=== PATIENT | male | born 1960 | race Caucasian/White ===

== ENCOUNTER 2021-12-31 08:17 | Emergency (ER) | payer BC ==
[2021-12-31] MEDS ORDERED: KETOROLAC 30 MG/ML INJ ONE (09:53)
--- NOTE | 2021-12-31 10:24 | EDPHYS ---
Physician Documentation [facility] Name: Alexys Hull Age: 61 yrs Sex: Male : 1960 Arrival Date: 12/31/2021 Time: 08:20 Bed 10 Private MD: Rizwana Santacruz ED Physician Tabatha West HPI: 12/31 08:51 This 61 yrs old Male presents to ER via Ambulatory with complaints of Hip Pain. jh7 08:51 The patient or guardian reports pain. Onset: The symptoms/episode began/occurred jh7 gradually, 1 month(s) ago. Associated signs and symptoms: Pertinent negatives:. Patient presents for intermittent left hip pain starting 1 month ago. He said that 1 morning he was laying on his left hip and started to feel pain. States that no set movement causes the pain and describes it as intermittent. Reports that he can be sitting on the couch and suddenly feel it or feel it while he is walking. Denies any injury/trauma. History of hypertension and diabetes.. Historical: - Allergies: 08:37 No Known Allergies; ss - PMHx: 08:37 Diabetes mellitus; Hypertensive disorder; ss - PSHx: 08:37 None; ss - Immunization history:: Client reports receiving the 2nd dose of the Covid vaccine. - Social history:: Smoking status: Patient denies any tobacco usage or history of. ROS: 08:51 Constitutional: Negative for fever, chills, and weight loss, ENT: Negative for injury, jh7 pain, and discharge, Neck: Negative for injury, pain, and swelling, Cardiovascular: Negative for chest pain, palpitations, and edema, Respiratory: Negative for shortness of breath, cough, wheezing, and pleuritic chest pain, Abdomen/GI: Negative for abdominal pain, nausea, vomiting, diarrhea, and constipation, Back: Negative for injury and pain, MS/Extremity: Negative for injury and deformity, Skin: Negative for injury, rash, and discoloration, Neuro: Negative for headache, weakness, numbness, tingling, and seizure. 08:51 MS/extremity: Positive for pain, Negative for injury or acute deformity, decreased range of motion, swelling, tenderness. 08:51 All other systems are negative. Exam: 08:51 Constitutional: This is a well developed, well nourished patient who is awake, alert, 7 and in no acute distress. Head/Face: Normocephalic, atraumatic. Cardiovascular: Regular rate and rhythm with a normal S1 and S2. No gallops, murmurs, or rubs. Normal PMI, no JVD. No pulse deficits. Respiratory: Lungs have equal breath sounds bilaterally, clear to auscultation and percussion. No rales, rhonchi or wheezes noted. No increased work of breathing, no retractions or nasal flaring. Abdomen/GI: Soft, non-tender, with normal bowel sounds. No distension or tympany. No guarding or rebound. No evidence of tenderness throughout. Back: No spinal tenderness. No costovertebral tenderness. Full range of motion. Skin: Warm, dry with normal turgor. Normal color with no rashes, no lesions, and no evidence of cellulitis. Neuro: Awake and alert, GCS 15, oriented to person, place, time, and situation. Motor strength 5/5 in all extremities. Sensory grossly intact. Normal gait. 08:51 Musculoskeletal/extremity: ROM: intact in all extremities, Circulation is intact in all extremities. Sensation intact. Left hip: Neurovascularly intact, reports some stiffness when moving from sitting to standing over the iliac crest. No deformity, erythema, or tenderness to palpation.. Vital Signs: 08:36 BP 142 / 88; Pulse 93; Resp 16; Temp 97.4(TE); Pulse Ox 99% on R/A; Weight 99.79 kg; ss Height 5 ft. 10 in. (177.80 cm); Pain 2/10; 08:36 Body Mass Index 31.57 (99.79 kg, 177.80 cm) MDM: 08:40 Patient medically screened. [facility] 10:20 Differential diagnosis: bursitis, arthritis, strain. Data reviewed: vital signs, nurses [facility] notes, radiologic studies, plain films. Data interpreted: Pulse oximetry: is 99 %. Interpretation: normal. Counseling: I had a detailed discussion with the patient and/or guardian regarding: the historical points, exam findings, and any diagnostic results supporting the discharge/admit diagnosis, to return to the emergency department if symptoms worsen or persist or if there are any questions or concerns that arise at home. 12/31 08:47 Order name: XRAY Hip LEFT 2 view; Complete Time: 10:59 [facility] Administered Medications: 09:55 Drug: Ketorolac 60 mg Route: IM; Site: right gluteus; ss 11:03 Follow up: Response: No adverse reaction; Marked relief of symptoms ss Disposition: 15:29 Co-signature as Attending Physician, Tabatha West MD STAFF ATTESTATION STATEMENT I aracelis was immediately available on-site in the Emergency Department for consultation in the care of the patient. Tabatha West MD. Disposition Summary: 12/31/21 10:23 Discharge Ordered Location: Home [facility] Problem: new [facility] Symptoms: are unchanged [facility] Condition: Stable [facility] Diagnosis - Pain in left hip [facility] Followup: [facility] - With: Private Physician - When: 2 - 3 days - Reason: Recheck today's complaints Discharge Instructions: - Discharge Summary Sheet [facility] - Arthritis [facility] - Hip Pain [facility] Forms: - Medication Reconciliation Form [facility] - Thank You Letter [facility] - Prescription Opioid Use [facility] Prescriptions: - Naprosyn 500 mg Oral Tablet - take 1 tablet by ORAL route 2 times per day take with food; 30 tablet; Refills: [facility] 0, Product Selection Permitted - Tramadol 50 mg Oral Tablet - take 1 tablet by ORAL route every 8 hours as needed; 12 tablet; Refills: 0, jh7 Product Selection Permitted Signatures: Dispatcher [employer] Maki Richard RN RN ss Hadash, Jennifer, KEY HOLDER KEY HOLDER [facility] Tabatha West MD MD sd2
--- NOTE | 2021-12-31 10:24 | ER ---
Nurse's Notes [facility] Name: Alexys Hull Age: 61 yrs Sex: Male : 1960 Arrival Date: 12/31/2021 Time: 08:20 Bed 10 Private MD: Rizwana Santacruz Diagnosis: Pain in left hip Presentation: 12/31 08:36 Chief complaint: Patient states: L hip pain that comes and goes 1 month. Worse ss yesterday. No known injury. Pt states, "I just rolled over in bed about a month ago when it started.". Coronavirus screen: Client denies travel out of the [place] in the last 14 days. Ebola Screen: Patient denies exposure to infectious person. Patient denies travel to an Ebola-affected area in the 21 days before illness onset. Initial Sepsis Screen: Does the patient meet any 2 criteria? No. Patient's initial sepsis screen is negative. Does the patient have a suspected source of infection? No. Patient's initial sepsis screen is negative. Risk Assessment: Do you want to hurt yourself or someone else? Patient reports no desire to harm self or others. Onset of symptoms was November 02, 2021. 08:36 Method Of Arrival: Ambulatory ss 08:36 Acuity: TRICE 4 ss Historical: - Allergies: 08:37 No Known Allergies; ss - PMHx: 08:37 Diabetes mellitus; Hypertensive disorder; ss - PSHx: 08:37 None; ss - Immunization history:: Client reports receiving the 2nd dose of the Covid vaccine. - Social history:: Smoking status: Patient denies any tobacco usage or history of. Screenin:38 Abuse screen: Denies threats or abuse. Denies injuries from another. Nutritional ss screening: No deficits noted. Tuberculosis screening: Never had TB. Fall Risk None identified. Assessment: 08:38 General: Appears in no apparent distress. comfortable, Behavior is calm, cooperative, ss Denies fever, feeling ill, fatigue, chills. Pain: Complains of pain in L hip Pain currently is 2 out of 10 on a pain scale. at worst was 10 out of 10 on a pain scale. Quality of pain is described as aching, sharp, Is intermittent. Neuro: Level of Consciousness is awake, alert, obeys commands, Oriented to person, place, time, situation. Cardiovascular: Capillary refill < 3 seconds is brisk in bilateral fingers. Respiratory: Airway is patent Respiratory effort is even, unlabored, Respiratory pattern is regular, symmetrical. GI: No signs and/or symptoms were reported involving the gastrointestinal system. EENT: Nares are clear Oral mucosa is moist. Throat is clear. Derm: Skin is intact, is healthy with good turgor, Skin is dry, Skin is pink, warm \\T\\ dry. normal. Musculoskeletal: Circulation, motion, and sensation intact. Range of motion: intact in all extremities, Swelling absent. Vital Signs: 08:36 BP 142 / 88; Pulse 93; Resp 16; Temp 97.4(TE); Pulse Ox 99% on R/A; Weight 99.79 kg; ss Height 5 ft. 10 in. (177.80 cm); Pain 2/10; 08:36 Body Mass Index 31.57 (99.79 kg, 177.80 cm) ED Course: 08:20 Patient arrived in ED. mr 08:20 Rizwana Santacruz is Private Physician. mr 08:24 [facility]isel [facility]illon [facility] 08:24 Tabatha West MD is Attending Physician. [facility] 08:37 Triage completed. ss 08:37 Arm band placed on left wrist. 08:38 Patient has correct armband on for positive identification. Bed in low position. 08:50 Maki Chopra, RN is Primary Nurse. ss 09:26 XRAY Hip LEFT 2 view In Process Unspecified. EDNE 11:02 No provider procedures requiring assistance completed. Patient did not have IV access ss during this emergency room visit. Administered Medications: 09:55 Drug: Ketorolac 60 mg Route: IM; Site: right gluteus; 11:03 Follow up: Response: No adverse reaction; Marked relief of symptoms ss Medication: 08:38 VIS not applicable for this client. Outcome: 10:23 Discharge ordered by . [facility] 11:02 Discharged to home ambulatory. 11:02 Condition: good 11:02 Discharge instructions given to patient, Instructed on discharge instructions, follow up and referral plans. medication usage, Demonstrated understanding of instructions, follow-up care, medications, Prescriptions given X 1. 11:03 Patient left the ED. Signatures: Dispatcher [employer] [facility] Keya Shell Shelby, RN RN ss Pal, Gisel, COSTUME SPECIALIST COSTUME SPECIALIST jh7
--- NOTE | 2021-12-31 10:41 | RAD REPORT ---
EXAM DESCRIPTION: RAD - Hip Left 2 View - 12/31/2021 9:24 am CLINICAL HISTORY: Left hip pain FINDINGS: No fracture or dislocation is seen. Mild osteoarthritis mainly consisting of joint space narrowing and subchondral sclerosis
[2021-12-31 11:36] VITALS: BP 142/88; TEMP 97.4; O2SAT 99
== END 2021-12-31 11:03 | disposition home or self-care (01) ==
LOC: ER 08:17
DX: M25.552 Pain in left hip (principal); E11.9 Type 2 diabetes mellitus without complications; I10 Essential (primary) hypertension
CPT/HCPCS: 96372; 99283